=== PATIENT | male | born 1970 | race American Indian/Alaskan Native ===

== ENCOUNTER 2020-05-27 10:37 | Observation (INO) | payer OTHER ==
--- NOTE | 2020-05-27 10:45 | Event Note ---
ED Screening Note ED Screening Note: 49-year-old male presents emergency department complaining of headache associated with blurred vision, lightheadedness and presyncope on yesterday has improved today but still has some continued weakness and fatigue blood pressure 180s over 100 and the triage but he has no reported history of hypertension. No chest pain, no shortness of breath no palpitations. This initial assessment/diagnostic orders/clinical plan/treatment(s) is/are subject to change based on patients health status, clinical progression and re- assessment by fellow clinical providers in the ED. Further treatment and workup at subsequent clinical providers discretion. Patient/guardian urged not to elope from the ED as their condition may be serious if not clinically assessed and managed. Initial orders include: Labs and detailed neuro evaluation
[2020-05-27 11:14] LABS: Basophils % (Auto) 0.2 % (0.0-1.8); Eosinophils % (Auto) 0.2 % (0.0-4.3); Hematocrit 43.9 % (35.5-45.6); Hemoglobin 14.9 gm/dl (11.8-15.2); Lymphocytes # (Auto) 1.3 K/mm3 (1.2-5.4); Lymphocytes % (Auto) 10.1 % (13.4-35.0); Mean Corpuscular HGB Conc 34 % (32-34); Mean Corpuscular Volume 88 fl (84-94); Monocytes # (Auto) 0.8 K/mm3 (0.0-0.8); Monocytes % (Auto) 6.1 % (0.0-7.3); Platelet Count 214 K/mm3 (140-440); Red Blood Count 4.97 M/mm3 (3.65-5.03)
--- NOTE | 2020-05-27 11:26 | Emergency Department Report ---
ED General Adult HPI - General Chief complaint: Dizziness Stated complaint: VOMITING/SYNCOPE PUI?: No Time Seen by Provider: 05/27/20 10:43 Source: patient, family, RN notes reviewed, old records reviewed Mode of arrival: Ambulatory Limitations: No Limitations - History of Present Illness Initial comments: The patient was evaluated in the emergency department for symptoms described in the history of present illness. He/she was evaluated in the context of the global COVID-19 pandemic, which necessitated consideration that the patient might be at risk for infection with the virus that causes COVID-19. Institutional protocols and algorithms that pertain to the evaluation of patients at risk for COVID-19 are in a state of rapid change based on information released by regulatory bodies including the CDC and federal and [facility] organizations. These policies and algorithms were followed during the patient's care in the emergency department. Please note that these policies, procedures and recommendations changed on a rapid basis. The patient is a 49-year-old gentleman. He is not known to myself previously. His past medical history includes diabetes and hypertension He does not know his hemoglobin A1c. He presents to the ER today with a complaint of resolved nausea, vomiting, binocular blurry vision, not accompanied with headache. This happened yesterday. It is now resolved. He also reports that he had similar symptoms a few weeks ago, which resolved spontaneously. He denies trauma, neck pain, chiropractic manipulation, and denies all symptoms at this time. He states that he is back to baseline. He reports he had visual evaluation within the past year, and glasses/contact lenses but not recommended. He endorses compliance with his medications. He denies travel, surgery, leg pain, leg swelling, DVT and pulmonary embolism risk factors. He denies tinnitus, loss of hearing, and change in auditory acuity. His symptoms have resolved. He is right-hand dominant. -: Sudden, minutes(s) Consistency: now resolved Improves with: none Worsens with: none - Related Data Allergies Allergy/AdvReac Type Severity Reaction Status Date / Time No Known Allergies Allergy Unverified 05/27/20 10:42 ED Review of Systems ROS: Stated complaint: VOMITING/SYNCOPE Other details as noted in HPI Constitutional: malaise, other (Denies loss of taste and smell). denies: fever, weakness Eyes: vision change (Binocular blurry vision). denies: eye pain, eye discharge ENT: denies: epistaxis Respiratory: denies: cough, shortness of breath Cardiovascular: syncope (Patient endorses near syncope but no syncope actually happen). denies: chest pain, palpitations Gastrointestinal: nausea, vomiting. denies: abdominal pain, diarrhea, constipation, hematemesis, melena, hematochezia Genitourinary: denies: dysuria Musculoskeletal: denies: back pain Neurological: weakness. denies: headache, numbness, paresthesias, confusion Hematological/Lymphatic: denies: easy bleeding ED Past Medical Hx - Past Medical History Previous Medical History?: Yes Hx Hypertension: Yes - Surgical History Past Surgical History?: No - Social History Smoking Status: Never Smoker Substance Use Type: Prescribed ED Physical Exam - General Limitations: No Limitations General appearance: alert, in no apparent distress - Head Head exam: Present: atraumatic, normocephalic - Eye Eye exam: Present: normal appearance, PERRL, EOMI, other (Visual acuity intact to finger counting and color perception at a close distance. Patient indicates he is not able to read well.). Absent: nystagmus - ENT ENT exam: Present: normal exam, normal orophraynx, mucous membranes moist, normal external ear exam - Neck Neck exam: Present: normal inspection, full ROM. Absent: tenderness, meningismus - Respiratory Respiratory exam: Present: normal lung sounds bilaterally. Absent: respiratory distress, wheezes, rales, rhonchi, stridor, decreased breath sounds - Cardiovascular Cardiovascular Exam: Present: normal rhythm, tachycardia, normal heart sounds. Absent: irregular rhythm, systolic murmur, diastolic murmur, rubs, gallop - GI/Abdominal GI/Abdominal exam: Present: soft. Absent: distended, tenderness, guarding, rebound, rigid, pulsatile mass - Rectal Rectal exam: Present: deferred - Extremities Exam Extremities exam: Present: normal inspection, full ROM, other (2+ pulses noted in the bilateral upper and lower extremities. There is no palpable cord. negative Homans sign. Muscular compartments are soft. The pelvis is stable.). Absent: pedal edema, calf tenderness - Back Exam Back exam: Present: normal inspection, full ROM. Absent: tenderness, CVA tenderness (R), CVA tenderness (L), paraspinal tenderness, vertebral tenderness - Neurological Exam Neurological exam: Present: alert, oriented X3, normal gait, other (There is no facial droop. The tongue is midline. Extraocular movements are intact bilaterally. There is 5 out of 5 strength in bilateral upper and lower extremities. Sensation is intact to light touch bilateral upper and lower extremities. There is no past-pointing. There is no pronator drift.). Absent: motor sensory deficit - Psychiatric Psychiatric exam: Present: normal affect, normal mood - Skin Skin exam: Present: warm, dry, intact, normal color. Absent: rash ED Course Vital Signs 05/27/20 05/27/20 05/27/20 10:41 11:42 12:35 Temperature 99.5 F Pulse Rate 114 H 100 H 75 Respiratory 18 18 13 Rate Blood Pressure 189/103 Blood Pressure 168/96 164/100 [right arm] O2 Sat by Pulse 98 98 100 Oximetry - Reevaluation(s) Reevaluation #1: 05/27/20 11:50 Differential diagnosis, including but not limited to: Peripheral vertigo, central vertigo, hyperglycemia, diabetic retinopathy, diabetic neuropathy, hypertensive emergency, press syndrome, pulmonary embolism Assessment and plan: 49-year-old gentleman who is clinically sober with a GCS of 15, resolving tachycardia, not tachypneic or hypoxic, who denies DVT and pulmonary embolism risk factors, who is low risk by Wells criteria for pulmonary embolism, with an NIH score of 0, with what appears to be poorly controlled hypertension and diabetes, complaining of resolved nausea, vomiting, and binocul ar blurry vision. Patient not a TPA candidate as his NIH score is 0, and his symptoms started yesterday, and he is more than 4.5 hours after his symptom onset. His examination is not suggestive of a large vessel occlusion. We will start him on IV fluids and insulin therapy, and replete his hypoma gnesemia. He was seen by stroke neurology, who agreed with the aforementioned differential diagnosis, and recommended CT angiogram head and neck to evaluate for posterior circulation clot/dissection, assuming D-dimer was negative for pulmonary embolism. If D-dimer elevated, patient will require emergent CT scan of the chest to exclude pulmonary embolism. If D-dimer negative, we will obtain CT angiogram head and neck. Patient does meet criteria for admission and hospitalization for correction of hyperglycemia, hypertensive urgency, and to evaluate him for TIA versus subacute stroke. Reassess after data points have resulted. GFR greater than 60. 05/27/20 12:[address] scan of the brain is negative for acute findings. CT angiogram head and neck pending interpretation. Patient resting comfortably at this time. He is in no acute distress. 05/27/20 13:33 Blood pressure is improved. CT angiogram head and neck negative for acute findings. Patient resting comfortably, watching TV, and in no acute distress. Patient is amenable to observation admission for TIA work-up. Aspirin ordered. Hospital physician, Dr. Roberto Faye to assume care ED Medical Decision Making - Lab Data Result diagrams: 05/27/20 11:05 05/27/20 11:05 Vital Signs 05/27/20 05/27/20 10:41 11:42 Temperature 99.5 F Pulse Rate 114 H 100 H Respiratory 18 18 Rate Blood Pressure 189/103 Blood Pressure 168/96 [right arm] O2 Sat by Pulse 98 98 Oximetry Lab Results 05/27/20 05/27/20 05/27/20 Range/Units 11:05 11:05 Unknown WBC 13.2 H (4.5-11.0) K/mm3 RBC 4.97 (3.65-5.03) M/mm3 Hgb 14.9 (11.8-15.2) gm/dl Hct 43.9 (35.5-45.6) % MCV 88 (84-94) fl MCH 30 (28-32) pg MCHC 34 (32-34) % RDW 14.0 (13.2-15.2) % Plt Count 214 (140-440) K/mm3 Lymph % (Auto) 10.1 L (13.4-35.0) % Barnes % (Auto) 6.1 (0.0-7.3) % Eos % (Auto) 0.2 (0.0-4.3) % Baso % (Auto) 0.2 (0.0-1.8) % Lymph # (Auto) 1.3 (1.2-5.4) K/mm3 Barnes # (Auto) 0.8 (0.0-0.8) K/mm3 Eos # (Auto) 0.0 (0.0-0.4) K/mm3 Baso # (Auto) 0.0 (0.0-0.1) K/mm3 Seg Neutrophils % 83.4 H (40.0-70.0) % Seg Neutrophils # 11.0 H (1.8-7.7) K/mm3 Sodium 137 (137-145) mmol/L Potassium 3.8 (3.6-5.0) mmol/L Chloride 94.2 L (98-107) mmol/L Carbon Dioxide 28 (22-30) mmol/L Anion Gap 19 mmol/L BUN 26 H (9-20) mg/dL Creatinine 1.5 H (0.8-1.3) mg/dL Estimated GFR 60 ml/min BUN/Creatinine Ratio 17 % Glucose 313 H (75-100) mg/dL Calcium 9.6 (8.4-10.2) mg/dL Magnesium 1.60 L (1.7-2.3) mg/dL Total Bilirubin 0.20 (0.1-1.2) mg/dL AST 10 (5-40) units/L ALT 12 (7-56) units/L Alkaline Phosphatase 64 (35-129) units/L Total Creatine Kinase 53 L (55-170) units/L Troponin T < 0.010 (0.00-0.029) ng/mL Total Protein 7.3 (6.3-8.2) g/dL Albumin 4.4 (3.9-5) g/dL Albumin/Globulin Ratio 1.5 % - EKG Data -: EKG Interpreted by Me EKG shows normal: sinus rhythm Rate: tachycardia - EKG Data 05/27/20 11:49 The EKG today's interpreted at 11: 30 a.m. Sinus rhythm, tachycardia, 102 bpm. Normal axis, normal intervals, left ventricular hypertrophy, abnormal EKG, denies chest pain, the EKG is not a STEMI. - Radiology Data Radiology results: pending Critical care attestation.: If time is entered above; I have spent that time in minutes in the direct care of this critically ill patient, excluding procedure time. ED Disposition Clinical Impression: Hyperglycemia, History of blurry vision, History of nausea and vomiting, Hypomagnesemia Disposition: OP ADMIT IP TO THIS HOSP Is pt being admited?: Yes Does the pt Need Aspirin: Yes Condition: Good Referrals: PRIMARY CARE, [Primary Care Provider] - 3-5 Days - Assessment Assessment Interval: Baseline - Level of Consciousness 1a. Level of Consciousness: alert/keenly responsive - LOC Questions 1b. LOC Questions: answers both correctly - LOC Command 1c. LOC Commands: performs tasks correctly - Best Gaze 2. Best Gaze: normal - Visual 3. Visual: no visual loss - Facial Palsy 4. Facial Palsy: normal symmetrical movement - Motor Arm 5a. Motor Arm Left: no drift 5b. Motor Arm Right: no drift - Motor Leg 6a. Motor Leg Left: no drift 6b. Motor Leg Right: no drift - Limb Ataxia 7. Limb Ataxia: absent - Sensory 8. Sensory: normal - Best Language 9. Best Language: no aphasia - Dysarthria 10. Dysarthria: normal - Extinction and Inattention 11. Extinction/Inattention: no abnormality - Scoring Total Score: 0 Stroke Severity: No Stroke Symptoms
--- NOTE | 2020-05-27 11:35 | Consultation ---
Medications and Allergies Allergies Allergy/AdvReac Type Severity Reaction Status Date / Time No Known Allergies Allergy Unverified 05/27/20 10:42 Physical Examination - Vital Signs Vital Signs: Vital Signs Temp Pulse Resp BP Pulse Ox 99.5 F 114 H 18 189/103 98 05/27/20 10:41 05/27/20 10:41 05/27/20 10:41 05/27/20 10:41 05/27/20 10:41 Results - Laboratory Findings CBC and BMP: 05/27/20 11:05 Abnormal Lab Findings: Abnormal Labs 05/27/20 11:05 WBC 13.2 H Lymph % (Auto) 10.1 L Seg Neutrophils % 83.4 H Seg Neutrophils # 11.0 H Assessment and Plan [facility] Consult Note # Demographics Consult Type: ED Teleneuro First Name: Roldan Last Name: Anjali Date of : 1970 Age: 49 Gender: male Time of initial page ([place] Time): 05-27-2020, 09:27 Time of return call ([place] Time): 05-27-2020, 09:27 # HPI Additional History: 49M with reported vertigo today. Similar yesterday and a week ago. At work, when he sat up he became dizzy and vomiting. Today when he got up he was dizzy and vomiting. No numbness/tingling. Blurry vision, and balance affected during symptoms, generally weak but no other focal symptom. # Scores Time of exam and NIHSS ([place] Time): 05-27-2020, 09:30 Level of Consciousness 1a: [0] = Alert; keenly responsive LOC Questions 1b: [0] = Answers both questions correctly LOC Commands 1c: [0] = Performs both tasks correctly Best Gaze 2: [0] = Normal Visual 3: [0] = No visual loss Facial Palsy 4: [0] = Normal symmetrical movements Motor Arm Left 5a: [0] = No drift Motor Arm Right 5b: [0] = No drift Motor Leg Left 6a: [0] = No drift Motor Leg Right 6b: [0] = No drift Limb Ataxia 7: [0] = Absent Sensory 8: [0] = Normal Best Language 9: [0] = No aphasia Dysarthria 10: [0] = Normal Extinction and Inattention 11: [0] = No abnormality NIHSS Total: 0 # Assessment Impression: Vertigo, provoked by position change as best I can determine. BPPV possible, r/o posterior circulation ischemia. # Plan Thrombolytic/Intervention: NOT IV Alteplase or IA Intervention Alteplase Exclusion (<3 hour window): non-disabling deficit Intraarterial Exclusion: non-disabling Imaging: (urgency: STAT in ED): CT Angiogram Head and CT Angiogram Neck Other: If patient has any neurological deterioration please call me back immediately, I have discussed my recommendations with the referring provider Additional Recommendations: If no concerning abnormality on CTA head/neck and symptoms remain resolved, then could pursue PT for Yuliet maneuvers as next step. Otherwise MRI brain would be reasonable next step. Disposition: observation
[2020-05-27 11:39] LABS: Alanine Aminotransferase 12 units/L (7-56); Albumin 4.4 g/dL (3.9-5); BUN/Creatinine Ratio 17; Blood Urea Nitrogen 26 mg/dL (9-20); Calcium 9.6 mg/dL (8.4-10.2); Hemolysis Index 6
[2020-05-27] MEDS ORDERED: LACTATED RINGERS 1,000 ML IV ONE (11:44)
[2020-05-27] MEDS ORDERED: INSULIN REGULAR, HUMAN 100 UNITS/1 ML IV ONE (11:44)
[2020-05-27] MEDS ORDERED: hydrALAZINE 20 MG/1 ML INJ IV ONE (11:45)
[2020-05-27] MEDS ORDERED: MAGNESIUM SULFATE 2 GM/50 ML BAG IV ONE ×2 (11:53→20:00)
[2020-05-27 12:00] LABS: INR 0.95 (0.87-1.13)
--- NOTE | 2020-05-27 12:50 | Cat Scan Report ---
CT HEAD WITHOUT CONTRAST INDICATION / CLINICAL INFORMATION: n/v blurry vision, now resolved. TECHNIQUE: All CT scans at this location are performed using CT dose reduction for ALARA by means of automated e xposure control. COMPARISON: None available. FINDINGS: HEMORRHAGE: None. EXTRA-AXIAL SPACES: Normal in size and morphology for the patient's age. VENTRICULAR SYSTEM: Normal in size and morphology for the patient's age. CEREBRAL PARENCHYMA: No significant abnormality. No acute territorial infarct. MIDLINE SHIFT OR HERNIATION: None. CEREBELLUM / BRAINSTEM: No significant abnormality. ORBITS: Normal as visualized. SOFT TISSUES of HEAD: No significant abnormality. CALVARIUM: No significant abnormality. PARANASAL SINUSES / MASTOID AIR CELLS: Normal as visualized. ADDITIONAL FINDINGS: None. IMPRESSION: 1. No acute intracranial abnormality. Signer Name: Ghulam Begum MD Signed: 05/27/2020 12:45 PM Workstation Name: [id number]
--- NOTE | 2020-05-27 13:08 | Cat Scan Report ---
CTA HEAD WITH CONTRAST HISTORY: Blurred vision; nausea and vomiting; weakness COMPARISON: None. TECHNIQUE: Routine non-contrast CT Head, CTA of the head and post-contrast CT Head are performed. 3-D /MIP reformats postprocessed. All CT scans at this location are performed using CT dose reduction for ALARA by means of automated exposure control CONTRAST: 100 ml of Omnipaque 350 FINDINGS: CTA Head: Intracranial vertebral arteries: No significant abnormality. Basilar artery: No significant abnormality. Posterior cerebral arteries: No significant abnormality. Both posterior communicating arteries are Intracranial internal carotid arteries: No significant abnormality. Anterior cerebral arteries: No significant abnormality. Middle cerebral arteries: No significant abnormality. Dural venous sinuses:Not optimally opacified. No significant abnormality. Additional findings: None. IMPRESSION: 1. No significant abnormality. Signer Name: Ethel Renteria MD Signed: 05/27/2020 1:03 PM Workstation Name: [id number]
--- NOTE | 2020-05-27 13:10 | Cat Scan Report ---
CTA NECK WITH CONTRAST HISTORY: Headaches; blurred vision COMPARISON: None. TECHNIQUE: Routine CTA of the neck was performed. 3-D/MIP reformats were postprocessed. Percentage s tenosis is determined by direct quantitative measurements of diseased internal carotid artery diamete r compared with normal distal internal carotid artery reference segments or by criteria similar to NA SCET where applicable.All CT scans at this location are performed using CT dose reduction for ALARA b y means of automated exposure control CONTRAST: 100 ml of Omnipaque 350 FINDINGS: Aortic arch: No significant abnormality. Cervical vertebral arteries: No significant abnormality. Common carotid arteries: No significant abnormality. Carotid bifurcations: Normal Cervical internal carotid arteries: No significant abnormality. Additional findings: None. IMPRESSION: 1. No significant abnormality. Signer Name: Ethel Renteria MD Signed: 05/27/2020 1:05 PM Workstation Name: [id number]
[2020-05-27] MEDS ORDERED: ASPIRIN 81 MG TAB CHEW PO ONE (13:34)
--- NOTE | 2020-05-27 20:13 | Event Note ---
Date: 05/27/20 Patient was evaluated Patient symptomatically better after his blood glucose dropped to 200 Neurological exam was normal Blurred vision secondary to high glucose levels Patient wants to go home Does not need any neurology work-up Discharge diagnosis Uncontrolled diabetes Hypomagnesemia Glipizide increased to 2 in the morning and 1 in the PM IV magnesium 2 g given Metformin 500 twice daily to continue Patient to follow-up with his PCP
[2020-05-27 23:20] VITALS: BP 126/87
== END 2020-05-27 23:25 | disposition home or self-care (01) ==
LOC: ED 10:37 → 3A 13:35 → 3B-SURG 22:04 → 3A 22:45
PROVIDERS: ADMIT Internal Medicine; ATTEND Internal Medicine
DX: E11.65 Type 2 diabetes mellitus with hyperglycemia (principal); G45.9 Transient cerebral ischemic attack, unspecified; E83.42 Hypomagnesemia; I10 Essential (primary) hypertension; H53.8 Other visual disturbances; R11.2 Nausea with vomiting, unspecified; R29.700 NIHSS score 0; Z86.69 Personal history of other diseases of the nervous system and sense organs; Z87.898 Personal history of other specified conditions
CPT/HCPCS: 36415; 70450; 70496; 70498; 80053; 82550; 82962; 83735; 84484; 85025; 85379; 85610; 93005; 96365; 96366; 99285; G0378; J3475; J7120; Q9967